=== PATIENT | female | born 1995 | race Caucasian/White ===

== ENCOUNTER 2017-04-11 12:03 | Emergency (ER) | payer OTHER ==
--- NOTE | 2017-04-11 12:51 | EDM.PDOC ---
ED HPI GENERAL MEDICAL PROBLEM - General Chief Complaint: General Stated Complaint: buring with urination Time Seen by Provider: 04/11/17 12:30 Source of Information: Reports: Patient History Limitations: Reports: No Limitations - History of Present Illness INITIAL COMMENTS - FREE TEXT/NARRATIVE: According to patient she has bee having dysuria since sunday. Martin when she urinates. But over the past 2 days the frequency of urination has increased. She claims since today morning she has urinated 6-7 times. Feeling of incomplete emptying. No fever or chills. No nausea or vomiting. No back pain. No vaginal discharge or pelvic pain or discomfort. Duration: Day(s): (3) Improves with: Reports: None Worsens with: Reports: None Associated Symptoms: Denies: Confusion, Chest Pain, Cough, Fever/Chills, Headaches, Nausea/Vomiting, Rash, Seizure, Shortness of Breath, Syncope, Weakness - Related Data Allergies Allergy/AdvReac Type Severity Reaction Status Date / Time No Known Allergies Allergy Verified 04/11/17 12:13 Past Medical History Genitourinary History: Reports: UTI, Recurrent - Past Surgical History Female Surgical History: Reports: None Social & Family History - Family History Family Medical History: Noncontributory ED ROS GENERAL - Review of Systems Review Of Systems: See Below Constitutional: Denies: Fever, Fatigue, Night Sweats HEENT: Denies: Rhinitis, Sinus Problem, Throat Pain, Throat Swelling Respiratory: Denies: Cough, Sputum Cardiovascular: Denies: Chest Pain, Lightheadedness, Syncope GI/Abdominal: Denies: Abdominal Pain, Nausea, Vomiting : Reports: Dysuria, Frequency. Denies: Flank Pain, Hematuria Musculoskeletal: Denies: Joint Pain, Joint Swelling Skin: Denies: Pruritis, Rash ED EXAM, GENERAL - Physical Exam Exam: See Below Exam Limited By: No Limitations General Appearance: Alert, WD/WN, No Apparent Distress Eye Exam: Bilateral Eye: EOMI, PERRL Ears: Normal External Exam, Normal Canal, Hearing Grossly Normal, Normal TMs Ear Exam: Bilateral Ear: Auricle Normal, Canal Normal, TM normal Nose: Normal Inspection, Normal Mucosa, No Blood Throat/Mouth: Normal Inspection, Normal Lips, Normal Teeth, Normal Gums, Normal Oropharynx, Normal Voice, No Airway Compromise Head: Atraumatic, Normocephalic Neck: Normal Inspection, Supple, Non-Tender, Full Range of Motion Respiratory/Chest: No Respiratory Distress, Lungs Clear, Normal Breath Sounds, No Accessory Muscle Use, Chest Non-Tender Cardiovascular: Normal Peripheral Pulses, Regular Rate, Rhythm, No Edema, No Gallop, No JVD, No Murmur, No Rub GI/Abdominal: Normal Bowel Sounds, Soft, Non-Tender, No Organomegaly, No Distention, No Abnormal Bruit, No Mass Back Exam: Normal Inspection, Full Range of Motion, NT Extremities: Normal Inspection, Normal Range of Motion, Non-Tender, Normal Capillary Refill, No Pedal Edema Skin Exam: Warm, Intact Course - Vital Signs Text/Narrative:: UA shows large leucs and micro shows clumps of WBC and RBCs. Pt reassured that she has UTI. Advised plenty of fluids and 1-2 glass of cranberry juice daily. Started her on cipro 500mg twice daily. I have not done urine culture on patient as she is from [facility]. She claims she does get recurrent UTI. I have advised her to followup with her PCP and have workup for recurrent UTIs. Last Recorded V/S: Last Vital Signs Temp 98.5 F 04/11/17 12:14 Pulse 111 H 04/11/17 12:14 Resp 16 04/11/17 12:14 BP 141/92 H 04/11/17 12:14 Pulse Ox 100 04/11/17 12:14 - Orders/Labs/Meds Labs: Laboratory Tests 04/11/17 Range/Units 12:39 Urine Color Yellow Urine Appearance Slightly cloudy (CLEAR) Urine pH 7.0 (5.0-8.0) Ur Specific [place] 1.020 (1.003-1.030) Urine Protein 100 H (NEGATIVE) mg/dL Urine Glucose (UA) Negative (NEGATIVE) mg/dL Urine Ketones >=160 H (NEGATIVE) mg/dL Urine Occult Blood Large H (NEGATIVE) Urine Nitrite Negative (NEGATIVE) Urine Bilirubin Negative (NEGATIVE) Urine Urobilinogen 1.0 (0.2-1.0) E.U./dL Ur Leukocyte Esterase Large H (NEGATIVE) Urine RBC Semi-packed H /HPF Urine WBC Semi-packed H /HPF Urine WBC Clumps Occasional /HPF Ur Squamous Epith Cells Few /HPF Urine Bacteria Few /HPF Departure - Departure Time of Disposition: 13:10 Disposition: Home, Self-Care 01 Condition: Good Clinical Impression: UTI (urinary tract infection) - Discharge Information Instructions: Urinary Tract Infection, Adult Referrals: PCP,None [Primary Care Provider] - Forms: ED Department Discharge - Problem List & Annotations (1) UTI (urinary tract infection) SNOMED Code(s): 51612812 Code(s): N39.0 - URINARY TRACT INFECTION, SITE NOT SPECIFIED Status: Acute Current Visit: Yes - Problem List Review Problem List Initiated/Reviewed/Updated: Yes - Assessment/Plan Assessment:: UTI Plan: UA shows large leucs and micro shows clumps of WBC and RBCs. Pt reassured that she has UTI. Advised plenty of fluids and 1-2 glass of cranberry juice daily. Started her on cipro 500mg twice daily. I have not done urine culture on patient as she is from [facility]. She claims she does get recurrent UTI. I have advised her to followup with her PCP and have workup for recurrent UTIs.
== END 2017-04-11 13:12 | disposition home or self-care (01) ==
LOC: LB.ED 12:03
DX: N39.0 Urinary tract infection, site not specified (principal)
CPT/HCPCS: 81001; 99283